=== PATIENT | male | born 1990 | race Caucasian/White ===

== ENCOUNTER 2024-06-13 15:14 | Emergency (ER) | payer OTHER, SELFPAY ==
--- NOTE | ~2024-06-13 | CT_ITS ---
CLINICAL INDICATION: GI bleeding. COMPARISON: None. TECHNIQUE: Multiple contiguous axial images of the abdomen and pelvis were performed following the ad ministration of 100 mL Omnipaque-350 intravenous contrast The dose-length product (DLP) was 946.09 mGy-cm. Automated exposure control and iterative reconstruction technique were employed. FINDINGS/OBSERVATIONS: Visualized lower thorax: The bilateral lung bases are clear. The heart is of normal size, without pericardial effusion. Moderate hiatal hernia is present. Liver: A subcentimeter well-circumscribed focus of decreased attenuation is identified within segment 8, too small to characterize, but statistically a cyst. The remainder of the liver otherwise enhances homogeneously. Gallbladder and biliary system: The gallbladder is only minimally distended, and otherwise unremarkable. Pancreas: The pancreas enhances homogeneously without ductal dilatation. Spleen: The spleen enhances homogeneously and is not enlarged measuring 8 cm in longitudinal dimension. Kidneys: The bilateral kidneys enhance symmetrically without hydronephrosis or renal calculi. Adrenal glands: Unremarkable. Gastrointestinal tract: Colonic diverticulosis without surrounding inflammatory change. Mural thickening within the transverse colon, with additional findings of decreased attenuation sugge sting wall edema. No cross-sectional imaging evidence to suggest the presence of GI hemorrhage. Appendix: The air-filled appendix is of normal caliber (axial series, images 89 through 112) Vasculature: Unremarkable. No aneurysmal dilatation or significant stenosis. Lymph nodes: No pathologically enlarged or morphologically suspicious lymph nodes within the retroperitoneum or at the root of the mesentery. Pelvic structures: The bladder is distended, and otherwise unremarkable. The prostate gland is not enlarged. Body wall and musculoskeletal: Small fat-containing umbilical hernia. No significant degenerative disease within the lower thoracic or lumbosacral spine. Small bone island to the right of midline within the posterior of L2. IMPRESSION: No cross-sectional imaging to suggest the presence of GI hemorrhage. Mural edema within the transverse colon for which a focal enteritis is suspected. Reviewed, dictated and finalized at location A. E [facility]ER IMPRESSION: No cross-sectional imaging to suggest the presence of GI hemorrhage. Mural edema within the transverse colon for which a focal enteritis is suspecte d.
--- NOTE | 2024-06-13 15:48 | ED.GENADULT ---
HPI - General Adult General Chief complaint: GI Bleed Stated complaint: sent by PCP for GI bleed Time Seen by Provider: 06/13/24 15:23 Source: patient Mode of arrival: ambulatory Limitations: no limitations History of Present Illness HPI narrative: This is a 33-year-old male with no pertinent PMH who presents to the ED for chief complaint of dark stools. Was seen by PCP earlier who was concern for possible GI bleed. Patient states the last few days he has had intermittent episodes of loose stools and has seen black stools. States that he ate food that had chicken and it on Tuesday night and later that night he started having abdominal cramping. States that the next day he started to see the black stools that have been intermittent. Endorses nausea but no episodes of vomiting. Denies bright red blood. Denies history of coagulopathy or other GI bleed. Endorses chills but no known fever. States the abdominal cramping comes on after the bowel movements. Denies Pepto or iron use Related Data Home Medications Medication Instructions Recorded Confirmed fluoxetine 20 mg capsule 40 mg PO DAILY 06/13/24 06/13/24 hydroxyzine HCl 10 mg tablet 30 mg PO DAILY 06/13/24 06/13/24 propranolol 10 mg tablet 10 mg PO DAILY 06/13/24 06/13/24 Allergies Allergy/AdvReac Type Severity Reaction Status Date / Time No Known Allergies Allergy Unverified 06/13/24 15:14 Review of Systems Review of Systems: All systems as dictated in HPI Exam Narrative: GENERAL: Well-appearing, well-nourished, and in no acute distress. HEAD: Normocephalic, atraumatic. EYES: PERRLA and EOMI. ENT: Nares clear, no rhinorrhea or epistaxis. Mucous membranes moist. Oropharynx without tonsillar hypertrophy exudate or other lesions. NECK: Supple. No adenopathy or masses. CHEST: No respiratory distress. Clear to auscultation. No wheezes rales or rhonchi HEART: Regular rate and rhythm. No murmur heard. Normal peripheral pulses. ABDOMEN: Focal left lower quadrant tenderness present. Soft, otherwise nontender, nondistended, normal active bowel sounds. Negative peritoneal signs MSK: Normal range of motion. No edema. SKIN: Warm, dry, no rash. NEURO: Alert and oriented x4. No focal deficits. PSYCH: Normal mood and affect. Medical Decision Making MDM Narrative Medical decision making narrative: This is a 33-year-old male who presents to the ED for chief complaint of abdominal pain and dark colored stools, concern for GI bleed. Vitals are normal. Exam shows focal left lower quadrant tenderness. Otherwise he is resting comfortably, nontoxic appearing. Lab work shows elevated white count of 16.8 with left shift. CMP unremarkable. CT abdomen pelvis with IV contrast: IMPRESSION: No cross-sectional imaging to suggest the presence of GI hemorrhage. Mural edema within the transverse colon for which a focal enteritis is suspected. Presentation consistent with colitis. Rx for Augmentin given. Patient will be discharged in stable condition. Supportive measures discussed and return precautions given. Patient is understanding and agreeable with plan for discharge with PCP follow-up. Discharge Plan Discharge Clinical Impression: Colitis Patient Disposition: Home, Self-Care Condition: Stable Instructions: Antibiotic Form Additional Instructions: Exam and workup today do show evidence of inflammation of the colon, this could be due to an infection. Please take antibiotic as prescribed and follow-up closely with PCP. Stay well hydrated at home. Use Tylenol and ibuprofen regularly for pain and fever control. If you have any new or worsening symptoms please return to the ER for further evaluation. Prescriptions: New amoxicillin-pot clavulanate 875-125 mg tablet 1 tablet PO Q12H Qty: 14 0RF No Action propranolol 10 mg tablet 10 mg PO DAILY hydroxyzine HCl 10 mg tablet 30 mg PO DAILY fluoxetine 20 mg capsule 40 mg PO DAILY Follow-up/Referrals: PHYSICIAN NOT ON STAFF,NONSTAFF [Primary Care Provider] - Stand Alone Forms: Work/School Release IP Time of Disposition: 17:54
[2024-06-13] MEDS: ONDANSETRON INJ 4 MG/2 ML VIAL IV PUSH (16:48)
[2024-06-13] MEDS: KETOROLAC 15 MG/ML VIAL (*BKC) IV PUSH (16:49)
[2024-06-13 16:55] LABS: Basophils Absolute Auto 0.1 K/mm3 (0.0-0.1); Basophils Percent Auto 0.3 % (0.2-1.2); Eosinophils Absolute Auto 0.3 K/mm3 (0-0.3); Eosinophils Percent Auto 1.5 % (0-4.4); Hematocrit 42.8 % (42.0-52.0); Hemoglobin 14.3 g/dL (14.0-18.0); Immature Granulocyte Absolute 0.06 K/mm3 (0.00-0.031); Immature Granulocyte Percent A 0.4 % (0-0.5); Lymphocytes Absolute Auto 2.67 K/mm3 (0.9-3.2); Lymphocytes Percent Auto 15.9 % (18.3-44.2); Mean Corpuscular HGB Conc 33.4 g/dl (32-36); Mean Corpuscular Volume 89.9 fl (80-100); Mean Platelet Volume 9.4 fl (7.4-10.4); Monocytes Absolute Auto 1.9 K/mm3 (0.1-0.6); Monocytes Percent Auto 11.1 % (2.6-8.5); Neutrophils Absolute Auto 11.9 K/mm3 (1.3-6.7); Neutrophils Percent Auto 70.8 % (45.5-73.1); Platelet Count Result 284 k/mm3 (150-375); Red Blood Count 4.76 M/mm3 (4.6-6.20); Red Cell Distribution Width 14.3 % (11.5-14.5); White Blood Count 16.8 K/mm3 (4.5-10.0)
[2024-06-13 17:06] LABS: Alanine Aminotransferase 36 U/L (6-50); Albumin Level 4.5 g/dL (3.5-5.1); Alkaline Phosphatase 113 U/L (38-126); Anion Gap 11 mmol/L (4-12); Aspartate Amino Transferase 28 U/L (17-59); Bilirubin,Total 0.7 mg/dL (0.2-1.3); Blood Urea Nitrogen 9 mg/dL (9-20); Calcium 9.3 mg/dL (8.4-10.2); Carbon Dioxide 28 mmol/L (22-30); Chloride 100 mmol/L (98-107); Estimated CRCL calculation 112 ml/min; Estimated Glomerular Filt Rate > 60; Glucose 87 mg/dL (65-110); Lipase 91 U/L (23-300); Potassium 3.8 mmol/L (3.4-5.0); Prothrombin Time 13.5 Seconds (11.1-14.7); Sodium 139 mmol/L (137-145)
[2024-06-13 17:07] LABS: Partial Thromboplastin Time 28.4 Seconds (22.3-36.8)
[2024-06-13 17:22] VITALS: BP 122/91; PULSE 82; RESP 18; TEMP 37.1; O2SAT 100
[2024-06-13 17:27] VITALS: BP 128/91; PULSE 92; TEMP 37.2; O2SAT 100
== END 2024-06-13 18:05 | disposition home or self-care (01) ==
PROVIDERS: Emergency Provider Physician Assistant
DX: K52.9 Noninfective gastroenteritis and colitis, unspecified (principal)
CPT/HCPCS: 36415; 74177; 80053; 83690; 85025; 85610; 85730; 96374; 96375; 99284; J1885; J2405; Q9967